=== PATIENT | female | born 1960 | race Caucasian/White ===

== ENCOUNTER 2021-08-18 06:54 | Observation (INO) ==
[2021-08-18] MEDS ORDERED: Naloxone 0.4 MG/ML INJ IVP PRN (12:21)
[2021-08-18] MEDS ORDERED: Perflutren Lipid Microsphere 1.3 ML in 0.9 % Sodium Chloride 8.7 ML IVP PRN (12:50)
[2021-08-18] MEDS ORDERED: D5% in Water 1,000 ML IVC PRN (12:52)
[2021-08-18] MEDS ORDERED: Dextrose Gel 15 GM/37.5 ML TUBE PO PRN ×2 (12:52)
[2021-08-18] MEDS ORDERED: *HR* Dextrose 50 % in Water (Syg) 50 ML SYRINGE IVP PRN (12:52)
[2021-08-18] MEDS ORDERED: Nitroglycerin 0.4 MG TAB.SUBL SL PRN (12:58)
[2021-08-18] MEDS: Insulin LISPRO 300 UNITS/3 ML VIAL SUBQ SCH ×2 (13:32→16:51)
[2021-08-18 14:18] LABS: Basophils % 0.4 %; Eosinophils # 0.1 K/mcL (0.0-0.6); Eosinophils % 1.5 %; Hematocrit 47.2 % (35.3-44.9); Hemoglobin 15.3 g/dL (11.5-15.4); Immature Granulocytes % 0.3 % (0-4); Lymphocytes # 2.5 K/mcL (0.6-4.6); Lymphocytes % 26.6 %; Mean Corpuscular HGB Conc 32.4 g/dL (31.6-35.5); Mean Corpuscular Hemoglobin 30.1 pg (28.0-33.3); Mean Corpuscular Volume 92.9 fL (83.0-100.0); Mean Platelet Volume 9.4 fL (9.4-12.4); Monocytes # 0.9 K/mcL (0.0-1.3); Monocytes % 9.2 %; Neutrophils # 5.8 K/mcL (1.6-8.9); Platelet Count 406 K/mcL (140-400); Red Blood Count 5.08 M/mcL (3.82-4.97); Red Cell Distribution Width 12.9 % (11.5-14.5); White Blood Count 9.3 K/mcL (4.3-11.1)
[2021-08-18 14:25] LABS: INR 1.1; Prothrombin Time 12.2 Seconds (9.4-12.1)
[2021-08-18] MEDS: *HR* Heparin 5,000 UNIT/ML VIAL SQ SCH ×2 (14:30→21:26)
[2021-08-18 14:39] LABS: Alanine Aminotransferase 31 Units/L (7-52); Albumin 4.3 g/dL (3.5-5.7); Albumin/Globulin Ratio 1.2 (1.1-2.2); Alkaline Phosphatase 60 Units/L (34-104); Aspartate Amino Transferase 27 Units/L (13-39); BUN/Creatinine Ratio 26 (6-26); Blood Urea Nitrogen 17 mg/dL (8-23); Calcium 9.7 mg/dL (8.6-10.3); Carbon Dioxide 25 mEq/L (23-29); Chloride 103 mEq/L (98-107); Chol/HDL Ratio 4.5 (0-4.9); Cholesterol 236 mg/dL (< 200); Globulin 3.5 g/dL (2.4-3.5); Glucose 115 mg/dL (70-105); HDL Cholesterol 52 mg/dL (40-59); LDL Cholesterol,Calculated 132 mg/dL (< 100); Magnesium 2.1 mg/dL (1.6-2.6); Osmolality,Calculated 288 (280-300); Phosphorous 3.7 mg/dL (2.7-4.5); Potassium 4.4 mEq/L (3.5-5.1); Sodium 138 mEq/L (136-145); Total Protein 7.8 g/dL (6.4-8.9); Triglycerides 261 mg/dL (< 150); Troponin I < 0.03 ng/mL (< 0.04); eGFR For African Americans > 60 (> 60); eGFR For Non-African Americans > 60 (> 60)
[2021-08-18 16:54] LABS: Estimated Average Glucose 154 mg/dl
[2021-08-18] MEDS: Nicotine 14 MG PATCH.TD24 TD SCH (21:26)
[2021-08-18] MEDS: lisinopriL 20 MG TABLET PO SCH (21:26)
[2021-08-19] MEDS: *HR* Heparin 5,000 UNIT/ML VIAL SQ SCH ×3 (05:33→21:04)
[2021-08-19] MEDS: Nicotine 14 MG PATCH.TD24 TD SCH ×2 (05:33→23:18)
[2021-08-19] MEDS ORDERED: Regadenoson 0.4 MG/5 ML SYRINGE IVP ONE (06:28)
[2021-08-19] MEDS: Insulin LISPRO 300 UNITS/3 ML VIAL SUBQ SCH ×3 (07:09→16:23)
[2021-08-19] MEDS: lisinopriL 20 MG TABLET PO SCH ×2 (08:25→21:03)
[2021-08-19] MEDS: Aspirin 81 MG TAB.CHEW PO SCH (08:25)
[2021-08-20] MEDS: *HR* Heparin 5,000 UNIT/ML VIAL SQ SCH (05:02)
[2021-08-20 07:47] VITALS: BP 115/75; PULSE 73; TEMP 97.6; O2SAT 96
[2021-08-20] MEDS: Insulin LISPRO 300 UNITS/3 ML VIAL SUBQ SCH ×2 (07:58→12:00)
[2021-08-20] MEDS: Aspirin 81 MG TAB.CHEW PO SCH (09:02)
[2021-08-20] MEDS: lisinopriL 20 MG TABLET PO SCH (09:02)
[2021-08-20] MEDS ORDERED: Acetaminophen 325 MG TABLET PO ONE (09:10)
== END 2021-08-20 11:35 | disposition home or self-care (01) ==
LOC: 3BNU → MERGE 11:36 → SUATTDRO 11:36
PROVIDERS: ADMIT Student in an Organized Health Care Education/Training Program; ATTEND Family Medicine